=== PATIENT | female | born 1970 | race African-American/Black ===

== ENCOUNTER 2019-03-20 12:50 | Emergency (ER) | payer OTHER ==
[~2019-03-20] VITALS: Ht 170.2 cm; Wt 72.0 kg
[~2019-03-20 12:50] MED LIST: ACYCLOVIR
[2019-03-20] MEDS ORDERED: SODIUM CHLORIDE 0.9% 1,000 ML IV ONE (14:01)
[2019-03-20 14:34] LABS: CHLORIDE 107 mEq/L (98-107)
[2019-03-20 14:41] LABS: BASOPHILS % 0.6 % (0.0-2.0); HEMOGLOBIN. 13.1 g/dL (12.0-16.0); LYMPHOCYTES % 26.9 % (20.0-50.0); MEAN CORPUSCULAR HEMOGLOBIN 27.8 pg (28.0-32.0); MEAN CORPUSCULAR VOLUME 84.6 fL (81.0-99.0); MEAN PLATELET VOLUME 8.9 fl (7.4-10.4); MONOCYTES % 5.8 % (2.0-8.0); NEUTROPHILS % 65.7 % (40.0-76.0); PLATELET 215 x1000/uL (130-400); RED BLOOD CELL COUNT 4.74 mill/uL (4.2-5.4)
[2019-03-20 15:08] LABS: HCG SCREEN NEGATIVE
[2019-03-20 16:23] LABS: CLARITY URINE CLEAR (CLEAR); COLOR URINE YELLOW (YELLOW); KETONES URINE TRACE (NEGATIVE); LEUKOCYTE ESTERASE URINE NEGATIVE (NEGATIVE); NITRITE URINE NEGATIVE (NEGATIVE); OCCULT BLOOD URINE NEGATIVE (NEGATIVE); PH URINE 6.5 (4.5-8.0); PROTEIN URINE NEGATIVE (NEGATIVE); SPECIFIC GRAVITY URINE 1.003 (1.005-1.030); UROBILINOGEN URINE 0.2 E.U./dL (0.2-1.0)
[2019-03-20 16:28] VITALS: BP 133/88
== END 2019-03-20 16:30 | disposition home or self-care (01) ==
LOC: ER 12:50
DX: R55 Syncope and collapse (principal); I10 Essential (primary) hypertension
CPT/HCPCS: 36415; 80053; 81003; 84703; 85025; 93005; 96360; 96361; 99284; J7030; Z7610

== ENCOUNTER 2019-03-20 22:36 | Emergency (ER) | payer OTHER ==
[~2019-03-20] VITALS: Ht 167.6 cm; Wt 74.0 kg
[2019-03-21] MEDS ORDERED: SODIUM CHLORIDE 0.9% 1,000 ML IV ONE (01:20)
[2019-03-21 02:20] LABS: BASOPHILS % 0.5 % (0.0-2.0); EOSINOPHILS % 1.2 % (0.0-5.0); HEMATOCRIT. 37.6 % (36.0-48.0); HEMOGLOBIN. 12.3 g/dL (12.0-16.0); LYMPHOCYTES % 30.6 % (20.0-50.0); MEAN CORPUSCULAR HEMOGLOBIN 27.7 pg (28.0-32.0); MEAN CORPUSCULAR VOLUME 84.7 fL (81.0-99.0); MEAN PLATELET VOLUME 8.9 fl (7.4-10.4); NEUTROPHILS % 59.7 % (40.0-76.0); PLATELET 207 x1000/uL (130-400); RED BLOOD CELL COUNT 4.44 mill/uL (4.2-5.4); RED CELL DISTRIBUTION WIDTH 14.8 % (11.6-14.6)
[2019-03-21 02:43] LABS: CHLORIDE 105 mEq/L (98-107)
[2019-03-21 02:56] LABS: T4 FREE 0.97 ng/dL (0.76-1.46)
[2019-03-21 05:01] VITALS: BP 135/78
== END 2019-03-21 05:02 | disposition home or self-care (01) ==
LOC: ER 22:36
DX: R53.1 Weakness (principal); R42 Dizziness and giddiness; I10 Essential (primary) hypertension; Z98.890 Other specified postprocedural states
CPT/HCPCS: 36415; 71045; 80053; 84439; 84443; 84484; 85025; 93005; 96360; 96361; 99284; J7030

== ENCOUNTER 2022-01-15 16:37 | Emergency (ER) | payer MEDICAID, OTHER ==
[~2022-01-15] VITALS: Ht 170.2 cm; Wt 85.0 kg
[2022-01-15 16:41] VITALS: BP 134/99
== END 2022-01-15 18:58 | disposition left against medical advice (07) ==
LOC: ER 16:37
DX: Z53.21 Procedure and treatment not carried out due to patient leaving prior to being seen by health care provider (principal)